=== PATIENT | female | born 1945 | race Caucasian/White ===

== ENCOUNTER → 2024-02-24 12:41 | Outpatient (REF) | payer MEDICARE, SELFPAY | LOC: WDC 12:41 | PROVIDERS: ATTENDING PHYSICIAN Family Medicine | DX: Z12.31 Encounter for screening mammogram for malignant neoplasm of breast (principal) | CPT/HCPCS: 77063; 77067 ==

== ENCOUNTER 2024-09-06 11:42 | Emergency (ER) | payer MEDICARE, SELFPAY ==
[2024-09-06 11:47] VITALS: BP 119/70
--- NOTE | 2024-09-06 11:55 | ED.GENMED ---
ED Provider Triage
<Wei Zapata PA-C - Last Filed: 09/06/24 12:33>
-
Patient seen by provider in Triage?: Seen in Triage
Attestation: A medical screening examination has been initiated by a qualified medical provider. Based on the assessment performed at this time, it has been determined that an emergent medical condition may exist and the patient has been informed
that further medical evaluation and possible additional diagnostic testing may be needed.
HPI: 79-year-old female presents due to multiple episodes of reported near syncope. She has dementia and cannot provide history. states that she has had 4 such episodes in the past 3 to 4 days with no complete loss of consciousness.
GENERAL: Alert , in no apparent distress
EYE: No visual abnormalities.
NECK: Trachea midline
ENT: No visible abnormalities.
LUNGS: No acute respiratory distress
NEUROLOGICAL: Alert and oriented
SKIN: Skin intact. No visible changes.
MUSCULOSKELETAL: Moving extremities normally
PSYCH: Normal and appropriate interaction.
This is a medical evaluation conducted in person to initiate diagnostic evaluation and provide initial therapeutics. Please see further documentation by the treating clinician.
History of Present Illness
<Wei Zapata PA-C - Last Filed: 09/06/24 12:33>
General
Chief Complaint: Fainting/Passed Out
Time Seen by Provider: 09/06/24 13:07
History of Present Illness
History of Present Illness:
Attestation: A medical screening examination has been initiated by a qualified medical provider. Based on the assessment performed at this time, it has been determined that an emergent medical condition may exist and the patient has been informed
that further medical evaluation and possible additional diagnostic testing may be needed.
HPI: 79-year-old female with history of Alzheimer's dementia presents with her for evaluation of multiple episodes of near syncope over the past 3 to 4 days. Patient can provide no history secondary to dementia. states that she has
not been unconscious during any of these episodes and they seem to happen rapidly without warning. No bloody or black stool. She has apparently been complaining of severe fatigue repeatedly
GENERAL: Alert , in no apparent distress
EYE: No visual abnormalities.
NECK: Trachea midline
ENT: No visible abnormalities.
LUNGS: No acute respiratory distress
NEUROLOGICAL: Alert and oriented
SKIN: Skin intact. No visible changes.
MUSCULOSKELETAL: Moving extremities normally
PSYCH: Normal and appropriate interaction.
This is a medical evaluation conducted in person to initiate diagnostic evaluation and provide initial therapeutics. Please see further documentation by the treating clinician.
<Chang Angel Jr., PA-C - Last Filed: 09/06/24 15:35>
General
Source: patient
Exam Limitations: none
Nursing documentation reviewed up to this point in time: agreed with
Past History
<Wei Zapata PA-C - Last Filed: 09/06/24 12:33>
Past History
ED Past Medical History: Cancer (Basal cell Skin CA), GERD, HTN, Hypercholesterolemia and Other (IBS, hiatal hernia, )
ED Past Surgical History: Orthopedic (Achilles tendon repair, Right and left knee surgery, Left total knee replacement. ) and Other (MOH's )
Social History
Tobacco: Smoker
Alcohol: Occasional
Drug: None
Personal:
Living: with family
Review of Systems
<Chang Angel Jr., PA-C - Last Filed: 09/06/24 15:35>
Review of Systems
Allergies reviewed?: Yes
All Other Systems: ROS reviewed and negative except as documented in HPI and ROS
Phy Exam
<Chang Angel Jr., PA-C - Last Filed: 09/06/24 15:35>
Physical Exam
Physical Exam:
GENERAL: Alert , in no apparent distress
EYE: pupils equal and reactive
NECK: Supple, no significant adenopathy.
ENT: o/p clr, mmm.
CARDIAC: Regular rate and rhythm .
LUNGS: Clear breath sounds bilaterally, no acute respiratory distress, no wheezes/rales/rhonchi
ABDOMEN: Soft, without focal tenderness, no r/g, no cvat
NEUROLOGICAL: Alert and oriented, no focal neuro deficits
SKIN: Warm and dry, skin intact.
MUSCULOSKELETAL: No edema, well perfused.
PSYCH: Normal and appropriate interaction.
5 out of 5 upper and lower extremity strength normal sensation with palpating bilaterally normal finger-nose and [id number]-[id number] no pronator drift
Course
<Wei Zapata PA-C - Last Filed: 09/06/24 12:33>
Orders/Labs/Results
Orders:
Orders
09/06/24 11:44
Electrocardiogram (*1) Urgent
Reason for Study: Syncope
EKG- Treatment ONCE
09/06/24 11:57
Complete Blood Count/With Diff Urgent
Comprehensive Metabolic Panel Urgent
Free T4 Urgent
Comment: ADD ON
Magnesium Urgent
Comment: ADD ON
TSH Urgent
Comment: ADD ON
09/06/24 13:26
Add On- LAB Urgent
Tests Added?: Tsh free t4, magnesium
Orthostatic VS- Treatment ONCE
Chest [CR Chest - 2 Views ] Urgent
Comment:
Reason For Exam: sob
09/06/24 13:27
Miscellaneous Order As Directed
Miscellaneous order: Can drink. Slight BUN elevation/.
Abnormal Lab Results
09/06/24
11:57
MPV 10.6 H fL
(7.4-10.4)
Abs Immat Gran (auto) 0.1 H 10^3/uL
(0-0.05)
Absolute Neuts (auto) 6.8 H 10^3/uL
(1.4-6.5)
Absolute Monos (auto) 1.0 H 10^3/uL
(0.1-0.6)
Monocytes % 9.8 H %
(1.7-9.3)
BUN 18 H mg/dl
(7-17)
AST 13 L U/L
(14-36)
Albumin 5.1 H g/dl
(3.5-5.0)
09/06/24 11:57
09/06/24 11:57
Vital Signs
Initial and Last Documented VS:
Initial Vital Signs
Temp Pulse Resp BP Pulse Ox
98.5 F 73 16 119/70 97
09/06/24 11:47 09/06/24 11:47 09/06/24 11:47 09/06/24 11:47 09/06/24 11:47
Last Documented Vital Signs
Temp Pulse Resp BP Pulse Ox
98.5 F 73 20 119/70 96
09/06/24 11:47 09/06/24 11:47 09/06/24 13:42 09/06/24 11:47 09/06/24 13:42
<Chang Angel Jr., PA-C - Last Filed: 09/06/24 15:35>
Orders/Labs/Results
Orders:
Orders
09/06/24 11:44
Electrocardiogram (*1) Urgent
Reason for Study: Syncope
EKG- Treatment ONCE
09/06/24 11:57
Complete Blood Count/With Diff Urgent
Comprehensive Metabolic Panel Urgent
Free T4 Urgent
Comment: ADD ON
Magnesium Urgent
Comment: ADD ON
TSH Urgent
Comment: ADD ON
09/06/24 13:26
Add On- LAB Urgent
Tests Added?: Tsh free t4, magnesium
Orthostatic VS- Treatment ONCE
Chest [CR Chest - 2 Views ] Urgent
Comment:
Reason For Exam: sob
09/06/24 13:27
Miscellaneous Order As Directed
Miscellaneous order: Can drink. Slight BUN elevation/.
Abnormal Lab Results
09/06/24
11:57
MPV 10.6 H fL
(7.4-10.4)
Abs Immat Gran (auto) 0.1 H 10^3/uL
(0-0.05)
Absolute Neuts (auto) 6.8 H 10^3/uL
(1.4-6.5)
Absolute Monos (auto) 1.0 H 10^3/uL
(0.1-0.6)
Monocytes % 9.8 H %
(1.7-9.3)
BUN 18 H mg/dl
(7-17)
AST 13 L U/L
(14-36)
Albumin 5.1 H g/dl
(3.5-5.0)
09/06/24 11:57
09/06/24 11:57
Vital Signs
Initial and Last Documented VS:
Initial Vital Signs
Temp Pulse Resp BP Pulse Ox
98.5 F 73 16 119/70 97
09/06/24 11:47 09/06/24 11:47 09/06/24 11:47 09/06/24 11:47 09/06/24 11:47
Last Documented Vital Signs
Temp Pulse Resp BP Pulse Ox
98.5 F 73 20 119/70 96
09/06/24 11:47 09/06/24 11:47 09/06/24 13:42 09/06/24 11:47 09/06/24 13:42
<Chang Angel Jr., PA-C - Last Filed: 09/06/24 15:35>
MDM/Problems Addressed
MDM/Problems Addressed:
79-year-old female presenting to the emergency department today after a few falls. She denies ever feeling lightheaded or feeling that she did the pass out. She claims that she just feels weakness. Did not hit her head denies any significant
trauma. Feels well at this point no associated chest pain shortness of breath or palpitations. On arrival vital signs are normal. Labs showing elevated BUN to creatinine ratio but otherwise no emergent findings. Chest x-ray without acute
abnormalities. Patient was given some the drink and was able to stand up and walk with no difficulty. Normal EKG. No evidence of emergent pathology advised for very close follow-up with the primary care doctor as there is some clinical
uncertainty at this time. Strict return precautions were discussed with the patient as well as her . They demonstrated understanding and agreement with the plan.
<Chang Angel Jr., PA-C - Last Filed: 09/06/24 15:35>
*Critical Care Note
Total Time (30-74mins, 75-104mins- exclusive of procedures): Not Applicable
ED Attending Note
<Wei Zapata PA-C - Last Filed: 09/06/24 12:33>
-
Portions of this chart may have been created with voice recognition software.� Occasional wrong word or��sound alike� substitutions may have occurred due to the inherent limitations of voice recognition software.
Discharge Plan
Departure
Patient Disposition: Home (Routine Discharge)
Date of Disposition: 09/06/24
Time of Disposition: 15:34
Patient with high blood pressure during this ER visit?: No
Condition: Good
Covid-19: Not Applicable
Discharge Problem:
Weakness
Instructions: Weakness - ED discharge instructions, Chest Pain CBC Follow Up
Prescriptions:
No Action
metoprolol succinate 100 MG tablet extended release 24 hr
100 mg PO DAILY
rosuvastatin 10 MG tablet
10 mg PO HS
olmesartan-hydrochlorothiazide 40-12.5 mg Tablet
1 tab PO HS
memantine 5 mg Tablet
5 mg PO BID
amlodipine 10 mg Tablet
10 mg PO DAILY
Referrals:
Colombian,Ruma Alice, DO [Family Provider] -
Activity Restrictions/Additional Instructions:
You came to the emergency department today with concerns of episodes where you develop weakness. Here you have a reassuring assessment. 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
week or to return for any worsening, new or concerning symptoms.
Interventions
Interventions:
*Risk Screen - Suicide Last Done: 09/06/24 11:47
*General Assessment Last Done: 09/06/24 11:47
*Neglect/Abuse Screening Last Done: 09/06/24 11:47
ED- Fall Risk Assessment Last Done: 09/06/24 13:43
ED- Cardiac Assessment Last Done: 09/06/24 13:43
ED- Neurological Assessment Last Done: 09/06/24 13:43
Discharge Date and Time
Print Language: MAORI
[2024-09-06 12:12] LABS: % Basophils 0.6 % (0-2); % Eosinophils 2.6 % (0-6); % Immature Granulocytes 0.5 % (0-0.5); % Lymphocytes 22.1 % (20.5-51.1); % Monocytes 9.8 % (1.7-9.3); % Neutrophils 64.4 % (42.2-75.2); Absolute Basophils 0.1 10^3/uL (0-0.2); Absolute Eosinophils 0.3 10^3/uL (0-0.7); Absolute Immature Granulocytes 0.1 10^3/uL (0-0.05); Absolute Lymphocytes 2.3 10^3/uL (1.2-3.4); Absolute Neutrophils 6.8 10^3/uL (1.4-6.5); Hematocrit 39.2 % (37.0-47.0); Hemoglobin 13.5 g/dL (12.0-16.0); Mean Corp Hgb Conc. 34.4 g/dL (33.0-37.0); Mean Corpuscular Hgb 30.8 pg (27.0-31.0); Mean Corpuscular Volume 89.3 fL (81.0-99.0); Mean Platelet Volume 10.6 fL (7.4-10.4); Nucleated Red Blood Cells % 0 %; Platelet Count 295 10^3/uL (130-400); Red Blood Cell Count 4.39 10^6/uL (4.20-5.40); Red Cell Dist. Width 13.5 % (11.5-14.5); White Blood Cell Count 10.5 10^3/uL (4.8-10.8)
[2024-09-06 12:26] LABS: ALT (SGPT) 14 U/L (0-35); AST (SGOT) 13 U/L (14-36); Albumin 5.1 g/dl (3.5-5.0); Alkaline Phosphatase 58 U/L (38-126); Blood Urea Nitrogen 18 mg/dl (7-17); Calcium 9.4 mg/dl (8.4-10.2); Carbon Dioxide 24 mmol/L (22-30); Chloride 102 mmol/L (98-107); Glucose 98 mg/dl (70-99); Potassium 4.1 mmol/L (3.5-5.1); Sodium 137 mmol/L (135-145); Total Bilirubin 0.7 mg/dl (0.2-1.3); Total Protein 7.9 g/dl (6.3-8.2); eGFR > 60.00
[2024-09-06 13:42] VITALS: BP 126/64; BP 144/71; BP 147/67; PULSE 66; PULSE 68; PULSE 70
[2024-09-06 14:25] LABS: Magnesium 2.3 mg/dl (1.6-2.3)
[2024-09-06 14:41] LABS: Free T4 1.17 ng/dl (0.78-2.19)
[2024-09-06 14:55] LABS: TSH 1.19 uIU/ml (0.47-4.68)
== END 2024-09-06 15:50 | disposition home or self-care (01) ==
LOC: EMR 11:42
PROVIDERS: Physician Assistant; EMERGENCY PHYSICIAN Emergency Medicine; FAMILY PHYSICIAN Family Medicine
DX: R53.1 Weakness (principal); F02.80 Dementia in other diseases classified elsewhere, unspecified severity, without behavioral disturbance, psychotic disturbance, mood disturbance, and anxiety; F17.200 Nicotine dependence, unspecified, uncomplicated
CPT/HCPCS: 99285; 71046; 80053; 83735; 84439; 84443; 85025; 93005

== ENCOUNTER → 2024-09-29 09:00 | Outpatient (REF) | payer MEDICARE, SELFPAY | LOC: RCS 09:00 | PROVIDERS: ATTENDING PHYSICIAN Internal Medicine Cardiovascular Disease; FAMILY PHYSICIAN Family Medicine | DX: R93.1 Abnormal findings on diagnostic imaging of heart and coronary circulation (principal); R29.6 Repeated falls; R55 Syncope and collapse | CPT/HCPCS: 93225; 93226 ==